=== PATIENT | male | born 1965 | race Caucasian/White ===

== ENCOUNTER 2018-12-27 13:53 | Day surgery (SDC) | payer OTHER ==
[~2018-12-27] VITALS: Ht 190.5 cm; Wt 164.8 kg
[~2018-12-27 13:53] MED LIST: Prinivil10 MG PO
[2018-12-27] MEDS ORDERED: BUPR150T2 (14:25)
[2018-12-27] MEDS ORDERED: Naltrexone HCl50 MG (14:26)
--- NOTE | 2018-12-27 14:56 | NUR ---
12/27/18 1456 Jacey Feliz INCOMPLETE COLONOSCOPY D/T POOR PREP PER DR FLORES.
--- NOTE | 2018-12-27 15:22 | NUR ---
12/27/18 1522 Jacey Feliz PT REFUSED ANYTHING PO IN STEP DOWN.
== END 2018-12-27 15:23 | disposition home or self-care (01) ==
LOC: ORSCSDS 13:53
PROVIDERS: Internal Medicine Gastroenterology
PROC: 0DJD8ZZ Inspection of Lower Intestinal Tract, Via Natural or Artificial Opening Endoscopic (ICD-10-PCS; principal; 2018-12-27 15:00)
DX: Z12.11 Encounter for screening for malignant neoplasm of colon (principal); I10 Essential (primary) hypertension; G47.33 Obstructive sleep apnea (adult) (pediatric); E66.9 Obesity, unspecified; Z68.42 Body mass index [BMI] 45.0-49.9, adult; Z79.899 Other long term (current) drug therapy
CPT/HCPCS: J2704; J7120

== ENCOUNTER 2019-01-30 10:36 | Day surgery (SDC) | payer OTHER ==
[~2019-01-30] VITALS: Ht 190.5 cm; Wt 165.7 kg
[~2019-01-30 10:36] MED LIST changes: +BUPR150T2; +Naltrexone HCl50 MG
[2019-01-30] MEDS ORDERED: Naltrexone HCl50 MG (10:55)
[2019-01-30] MEDS ORDERED: BUPR150ER (10:56)
--- NOTE | 2019-01-30 11:14 | NUR ---
01/30/19 1114 Isabel Mccoy FIRST IV ATTEMPT IN RIGHT WRIST INFILTRATED, BY ORSC.BI. SECOND ATTEMPT IN RIGHT AC WAS SUCCESSFUL AND TOLERATED WELL, BY ORS.RCL.
== END 2019-01-30 13:00 | disposition home or self-care (01) ==
LOC: ORSCSDS 10:36
PROVIDERS: Internal Medicine Gastroenterology
PROC: 0DBN8ZX Excision of Sigmoid Colon, Via Natural or Artificial Opening Endoscopic, Diagnostic (ICD-10-PCS; principal; 2019-01-30 11:45)
PROC: 0DBM8ZX Excision of Descending Colon, Via Natural or Artificial Opening Endoscopic, Diagnostic (ICD-10-PCS; principal; 2019-01-30 11:45)
DX: Z12.11 Encounter for screening for malignant neoplasm of colon (principal); K63.5 Polyp of colon; K64.8 Other hemorrhoids
CPT/HCPCS: 88305; J2704; J7120

== ENCOUNTER → 2020-07-16 | Outpatient (CLI) | payer OTHER ==
[~2020-07-16] MED LIST changes: +BUPR150ER
== END ==
LOC: PLD 13:38 → LAB SHORT 13:38
DX: R21 Rash and other nonspecific skin eruption (principal)
CPT/HCPCS: 88312

== ENCOUNTER → 2021-07-12 | Outpatient (CLI) | payer OTHER ==
[2021-07-12 13:36] LABS: Stool Occult Bld Immuno 1 Negative (NEGATIVE)
== END ==
LOC: LAB SHORT 09:34
PROVIDERS: Family Medicine
DX: Z01.84 Encounter for antibody response examination (principal)
CPT/HCPCS: G0328

== ENCOUNTER → 2024-06-25 | Outpatient (CLI) | payer OTHER ==
[2024-06-25 13:51] LABS: BASOPHILS ABSOLUTE AUTO 0.02 K/mm3 (0.00-0.23); BASOPHILS PERCENT AUTO 0 % (0-2); EOSINOPHILS ABSOLUTE AUTO 0.17 K/mm3 (0.00-0.68); EOSINOPHILS PERCENT AUTO 3 % (0-6); Hematocrit 39.4 % (37.0-53.0); Hemoglobin 13.4 g/dL (13.5-17.5); IMMATURE GRAN ABSOLUTE AUTO 0.02 K/mm3 (0.00-0.10); IMMATURE GRAN PERCENT AUTO 0 % (0-1); LYMPHOCYTES ABSOLUTE AUTO 0.72 K/mm3 (0.84-5.20); LYMPHOCYTES PERCENT AUTO 13 % (21-46); MONOCYTES ABSOLUTE AUTO 0.92 K/mm3 (0.16-1.47); MONOCYTES PERCENT AUTO 17 % (4-13); Mean Corpuscular HGB 30.9 pg (26.0-34.0); Mean Corpuscular Volume 91 fL (80-100); Mean Platelet Volume 10.4 fL (9.1-12.4); NEUTROPHILS ABSOLUTE AUTO 3.65 K/mm3 (1.96-9.15); NEUTROPHILS PERCENT AUTO 66 % (41-73); Platelet Count 174 K/mm3 (150-400); RDW Coefficient Variation 12.4 % (11.7-14.2); Red Blood Cell Count 4.34 M/mm3 (4.30-5.90)
[2024-06-25 14:04] LABS: Albumin, Blood 3.8 g/dL (3.4-5.0); Albumin/Globulin Ratio 1.1 (0.8-1.8); Bilirubin, Total 0.4 mg/dL (0.1-1.0); Bun/Creatinine Ratio 14.7 (12.0-20.0); Calcium, Blood 8.7 mg/dL (8.5-10.1); Creatinine, Blood 0.95 mg/dL (0.60-1.20); Globulin, Blood 3.4 g/dL (2.2-4.0); Potassium, Blood 3.8 mmol/L (3.5-5.5); Total Protein, Blood 7.2 g/dL (6.4-8.2)
== END ==
LOC: LAB 13:46 → LAB SHORT 13:46
PROVIDERS: Physician Assistant
DX: M79.10 Myalgia, unspecified site (principal)
CPT/HCPCS: 80053; 85025; 85651; 86141